=== PATIENT | female | born 1935 | race Caucasian/White ===

== ENCOUNTER 2016-05-27 11:42 | Inpatient (IN) | payer MEDICARE ==
[2016-05-27] MEDS ORDERED: SODIUM CHLORIDE 0.9% 1,000 ML IV STA ×3 (11:50→14:02)
--- NOTE | 2016-05-27 11:51 | ED ---
General Adult HPI - General Stated complaint: Liver Ca patient, abdominal distention, PACEMAKER Time Seen by Provider: 05/27/16 11:45 Source: RN notes reviewed, old records reviewed - History of Present Illness Initial comments: This is an 80-year-old female ER for evaluation. Patient comes in with very complicated medical history. Patient coming in with weakness shortness of breath dehydration. Pains that she can't breathe secondary to abdominal pain and increased abdominal distention. Patient has history of liver cancer found when she was having gallbladder surgery, patient is from [place] and is moving to [facility] for end-of-life type treatment. Patient himself denies any other serious pains at this time. Denies any fevers no diarrhea she is having nausea status and not feeling well. Decreased appetite and weight loss. - Related Data Home Medications Medication Instructions Recorded Confirmed Apixaban [Eliquis] 2.5 mg PO BID 05/27/16 05/27/16 Aspirin EC [Ecotrin Low Dose] 81 mg PO DAILY 05/27/16 05/27/16 Carvedilol [Coreg] 3.125 mg PO BID 05/27/16 05/27/16 Cetirizine HCl [Zyrtec] 10 mg PO DAILY 05/27/16 05/27/16 Cholecalciferol [Vitamin D3] 5,000 unit PO DAILY 05/27/16 05/27/16 L.acidoph,Paracasei, B.lactis 1 cap PO DAILY 05/27/16 05/27/16 [Probiotic] Maple Syrup And Pure Baking Soda 5 ml PO DAILY 05/27/16 05/27/16 Nitroglycerin Sl Tabs [Nitrostat] 0.4 mg SUBLINGUAL Q5M PRN 05/27/16 05/27/16 [place] Extract 1 tab PO DAILY 05/27/16 05/27/16 Allergies Allergy/AdvReac Type Severity Reaction Status Date / Time Penicillins Allergy Rash/Hives Verified 05/27/16 14:09 Sulfa (Sulfonamide Allergy Hallucinati Verified 05/27/16 14:09 Antibiotics) ons Review of Systems ROS Statement: Those systems with pertinent positive or pertinent negative responses have been documented in the HPI. ROS Other: All systems not noted in ROS Statement are negative. General Exam General appearance: alert, anxious, cachectic Head exam: Present: atraumatic, normocephalic, normal inspection Eye exam: Present: normal appearance, PERRL, EOMI. Absent: scleral icterus, conjunctival injection, periorbital swelling ENT exam: Present: mucous membranes dry Neck exam: Present: normal inspection. Absent: tenderness, meningismus, lymphadenopathy Respiratory exam: Present: normal lung sounds bilaterally. Absent: respiratory distress, wheezes, rales, rhonchi, stridor Cardiovascular Exam: Present: regular rate, normal rhythm, normal heart sounds. Absent: systolic murmur, diastolic murmur, rubs, gallop, clicks GI/Abdominal exam: Present: soft, distended, normal bowel sounds. Absent: tenderness, guarding, rebound, rigid Extremities exam: Present: normal inspection, full ROM, normal capillary refill. Absent: tenderness, pedal edema, joint swelling, calf tenderness Back exam: Present: normal inspection Neurological exam: Present: alert, oriented X3, CN II-XII intact Psychiatric exam: Present: normal affect, normal mood Skin exam: Present: warm, dry, intact, normal color. Absent: rash Course Vital Signs 05/27/16 05/27/16 11:48 14:40 Temperature 97.3 F L 97.6 F Pulse Rate 63 62 Respiratory 20 18 Rate Blood Pressure 123/58 158/68 O2 Sat by Pulse 97 100 Oximetry - Reevaluation(s) Reevaluation #1: 05/27/16 14:53 Spoke with patient and patient's family regarding desire for treatment, patient' s family would like hospice consult that they also would like drainage of ascites or GI evaluation, interventional radiology, and oncology in the area. Patient has no doctors in this area at the time Medical Decision Making - Medical Decision Making 80 female here for evaluation of difficulty breathing secondary to abdominal ascites. Patient be admitted for paracentesis, monitoring of oxygen. Patient will be resuscitated, adequately hydrated with symptom control - Lab Data Result diagrams: 05/27/16 13:20 05/27/16 13:20 Lab Results 05/27/16 05/27/16 05/27/16 Range/Units 13:20 13:20 13:20 WBC 10.1 (3.8-10.6) k/uL RBC 3.60 L (3.80-5.40) m/uL Hgb 10.5 L (11.4-16.0) gm/dL Hct 33.8 L (34.0-46.0) % MCV 93.8 (80.0-100.0) fL MCH 29.0 (25.0-35.0) pg MCHC 31.0 (31.0-37.0) g/dL RDW 15.8 H (11.5-15.5) % Plt Count 418 (150-450) k/uL Neutrophils % 83 % Lymphocytes % 10 % Monocytes % 5 % Eosinophils % 1 % Basophils % 0 % Neutrophils # 8.4 H (1.3-7.7) k/uL Lymphocytes # 1.0 (1.0-4.8) k/uL Monocytes # 0.5 (0-1.0) k/uL Eosinophils # 0.1 (0-0.7) k/uL Basophils # 0.0 (0-0.2) k/uL Hypochromasia Moderate PT 12.8 H (9.0-12.0) sec INR 1.3 (<1.1) APTT 34.8 H (22.0-30.0) sec Sodium 128 L (137-145) mmol/L Potassium 4.8 (3.5-5.1) mmol/L Chloride 93 L (98-107) mmol/L Carbon Dioxide 24 (22-30) mmol/L Anion Gap 11 mmol/L BUN 16 (7-17) mg/dL Creatinine 0.56 (0.52-1.04) mg/dL Est GFR (MDRD) Af Amer >60 (>60 ml/min/1.73 sqM) Est GFR (MDRD) Non-Af >60 (>60 ml/min/1.73 sqM) Glucose 80 (74-99) mg/dL Plasma Lactic Acid Chris (0.7-2.0) mmol/L Calcium 8.9 (8.4-10.2) mg/dL Total Bilirubin 1.0 (0.2-1.3) mg/dL AST 215 H (14-36) U/L ALT 29 (9-52) U/L Alkaline Phosphatase 356 H (38-126) U/L Ammonia (<30) umol/L Total Creatine Kinase (30-135) U/L CK-MB (CK-2) (0.0-2.4) ng/mL CK-MB (CK-2) Rel Index Troponin I (0.000-0.034) ng/mL Total Protein 6.6 (6.3-8.2) g/dL Albumin 3.3 L (3.5-5.0) g/dL Amylase 35 (30-110) U/L Lipase 67 (23-300) U/L 05/27/16 05/27/16 Range/Units 13:20 13:20 WBC (3.8-10.6) k/uL RBC (3.80-5.40) m/uL Hgb (11.4-16.0) gm/dL Hct (34.0-46.0) % MCV (80.0-100.0) fL MCH (25.0-35.0) pg MCHC (31.0-37.0) g/dL RDW (11.5-15.5) % Plt Count (150-450) k/uL Neutrophils % % Lymphocytes % % Monocytes % % Eosinophils % % Basophils % % Neutrophils # (1.3-7.7) k/uL Lymphocytes # (1.0-4.8) k/uL Monocytes # (0-1.0) k/uL Eosinophils # (0-0.7) k/uL Basophils # (0-0.2) k/uL Hypochromasia PT (9.0-12.0) sec INR (<1.1) APTT (22.0-30.0) sec Sodium (137-145) mmol/L Potassium (3.5-5.1) mmol/L Chloride (98-107) mmol/L Carbon Dioxide (22-30) mmol/L Anion Gap mmol/L BUN (7-17) mg/dL Creatinine (0.52-1.04) mg/dL Est GFR (MDRD) Af Amer (>60 ml/min/1.73 sqM) Est GFR (MDRD) Non-Af (>60 ml/min/1.73 sqM) Glucose (74-99) mg/dL Plasma Lactic Acid Chris 1.4 (0.7-2.0) mmol/L Calcium (8.4-10.2) mg/dL Total Bilirubin (0.2-1.3) mg/dL AST (14-36) U/L ALT (9-52) U/L Alkaline Phosphatase (38-126) U/L Ammonia <9 (<30) umol/L Total Creatine Kinase 33 (30-135) U/L CK-MB (CK-2) 1.0 (0.0-2.4) ng/mL CK-MB (CK-2) Rel Index 3.0 Troponin I 0.015 (0.000-0.034) ng/mL Total Protein (6.3-8.2) g/dL Albumin (3.5-5.0) g/dL Amylase (30-110) U/L Lipase (23-300) U/L - Radiology Data Radiology results: report reviewed (X-ray abdominal series the chest that showed diffuse metastatic disease no acute process), image reviewed Disposition Clinical Impression: Ascites, Liver cancer, Dyspnea, Abdominal pain Disposition: ADMITTED IP TO THIS [facility] Condition: Fair Referrals: Nonstaff,Physician [Primary Care Provider] - 1-2 days
[2016-05-27 13:31] LABS: Basophils % (A) 0 %; CH 28.6; CHCM 30.6; Eosinophils # (A) 0.1 k/uL (0-0.7); Eosinophils % (A) 1 %; HCT 33.8 % (34.0-46.0); HDW 2.57; HGB 10.5 gm/dL (11.4-16.0); Hypochromasia Moderate; Luc # (Auto) 0.17; Luc % (Auto) 2; Lymphocytes % (A) 10 %; MCV 93.8 fL (80.0-100.0); Mean Platelet Volume 6.5; Monocytes # (A) 0.5 k/uL (0-1.0); Monocytes % (A) 5 %; Neutrophils # (A) 8.4 k/uL (1.3-7.7); Neutrophils % (A) 83 %; RDW 15.8 % (11.5-15.5); WBC 10.1 k/uL (3.8-10.6); WBC (Perox) 10.85
[2016-05-27 13:39] LABS: INR 1.3 (<1.1); Partial Thromboplastin Time 34.8 sec (22.0-30.0); Prothrombin Time 12.8 sec (9.0-12.0)
[2016-05-27 13:41] LABS: ALT 29 U/L (9-52); AST 215 U/L (14-36); Alkaline Phosphatase 356 U/L (38-126); Amylase 35 U/L (30-110); Anion Gap 11 mmol/L; Blood Urea Nitrogen 16 mg/dL (7-17); Calcium 8.9 mg/dL (8.4-10.2); Carbon Dioxide 24 mmol/L (22-30); Chloride 93 mmol/L (98-107); Glucose 80 mg/dL (74-99); Non-African American GFR(MDRD) >60 (>60 ml/min/1.73 sqM); Potassium 4.8 mmol/L (3.5-5.1); Sodium 128 mmol/L (137-145); Total Protein 6.6 g/dL (6.3-8.2)
[2016-05-27 13:55] LABS: Ammonia <9 umol/L (<30)
[2016-05-27] MEDS ORDERED: LORazepam 2 MG/ML SYRINGE IV STA (14:02)
[2016-05-27] MEDS ORDERED: MORPHINE SULFATE 2 MG/ML SYRINGE IVP ONE (14:02)
[2016-05-27 14:04] LABS: Troponin I 0.015 ng/mL (0.000-0.034)
--- NOTE | 2016-05-27 14:09 | XR ---
EXAMINATION TYPE: XR abdomen acute w cxr DATE OF EXAM: 05/27/2016 1:53 PM COMPARISON: NONE HISTORY: Pain and bloating TECHNIQUE: One view of the chest and 3 views of the abdomen are submitted. FINDINGS: The bowel gas pattern is nonspecific. The osseous structures are intact. There is scoliosis with mult ilevel degenerative disc disease. Surgical clips in the right upper quadrant are noted. Soft tissue fullness in the pelvis could be rel ated to urine filled bladder correlate clinically. Arthropathy of the hips noted. Vascular calcificat ion seen. There is bilateral small effusions and numerous pulmonary masses compatible with metastases. There is a cardiac device and apical pleural thickening. Diffuse osteopenia and arthropathy of the shoulders. IMPRESSION: 1. Nonspecific abdomen. 2. Small bilateral effusion and basilar infiltrate with multiple pulmonary masses suspicious for meta stases. 3. Soft tissue fullness in the pelvis could be related to mass, peritoneal fluid or related to urine filled bladder. Correlate clinically.
[2016-05-27] MEDS ORDERED: MORPHINE SULFATE 2 MG/ML SYRINGE IVP PRN (14:41)
[2016-05-27] MEDS ORDERED: TEMAZEPAM 15 MG CAP PO PRN (18:22)
[2016-05-27] MEDS ORDERED: ALPRAZolam 0.25 MG TAB PO PRN (18:22)
[2016-05-27] MEDS ORDERED: HYDROcodone/APAP 5-325MG 1 EACH TAB PO PRN (18:22)
[2016-05-27] MEDS: ONDANSETRON 4 MG/2 ML VIAL IVP PRN ×2 (18:30→23:18)
[2016-05-27] MEDS: CARVEDILOL 3.125 MG TAB PO SCH (20:43)
--- NOTE | 2016-05-27 21:47 | HP ---
DATE OF ADMISSION: 05/27/2016 CHIEF COMPLAINT: Abdominal distention. HISTORY OF PRESENT ILLNESS: This 80-year-old woman with a past medical history of COPD, CVA, TIA, hypertension, history of liver disease, history of myocardial infarction, mitral valve prolapse, history of cholecystectomy, CAD, stent, depression, being followed by a primary physician in [place], has recently travelled to [place] to spend time with the family for the next few months. Apparently patient has extensive history of liver cancer, stage IV, starting in [place], and subsequently patient was in [facility] 2 clinical trials. Patient was unable to tolerate some of the medications and the patient has gone through significant chemotherapy. Currently the patient and family are complaining of some significant abdominal distention. The patient was admitted for further evaluation and treatment. There is no history of any fever, rigor, or chills. No history of any headache, loss of consciousness, seizures. PAST MEDICAL HISTORY: 1. COPD. 2. CVA, TIA. 3. Hypertension. 4. History of liver disease. 5. Myocardial infarction. 6. Mitral valve prolapse. 7. DJD. 8. Pneumonia. 9. Liver cancer, stage IV. 10. Cholecystectomy. 11. CAD, stent. MEDICATIONS: 1. [place] leaf extract 1 tablet p.o. daily. 2. Nitrostat 0.4 sublingually q.5 p.r.n. 3. Maple syrup and pure baking soda 5 mL p.o. daily. 4. Probiotic 1 capsule daily. 5. Vitamin D3, 5000 units. 6. Zyrtec 10 mg daily. 7. Coreg 3.125 mg b.i.d. 8. Ecotrin 81 mg. 9. Eliquis 2.5 mg b.i.d. ALLERGIES: PENICILLIN and SULFA. FAMILY HISTORY: History of myocardial infarction and atherosclerotic heart disease. SOCIAL HISTORY: No current smoking or alcohol. Previous history of smoking. REVIEW OF SYSTEMS: ENT: Diminishing hearing. Diminished vision. CARDIOVASCULAR SYSTEM: No angina, palpitations. RESPIRATORY SYSTEM: No cough, hemoptysis. GI: As mentioned earlier. : No dysuria. NERVOUS SYSTEM: No numbness or weakness. ALLERGY/IMMUNOLOGY: No asthma or hayfever. MUSCULOSKELETAL: As mentioned earlier. HEMATOLOGY/ONCOLOGY: As mentioned earlier. ENDOCRINE: No history of diabetes, hypothyroidism. CONSTITUTIONAL: As mentioned earlier. DERMATOLOGY: Negative. RHEUMATOLOGY: Negative. PSYCHIATRY: As mentioned earlier. PHYSICAL EXAMINATION: Patient alert and oriented x3. Pulse is 69, blood pressure 150/76, respiration 18, temperature 98.4, pulse ox 100% on 2 L. HEENT: Conjunctivae normal. Oral mucosa moist. NECK: No jugular venous distention. No carotid bruit. No lymph node enlargement. CARDIOVASCULAR SYSTEM: S1, S2 muffled. No S3. No S4. RESPIRATORY SYSTEM: Breath sounds diminished at the bases. A few scattered rhonchi and crackles. ABDOMEN: Soft. Diffuse tense ascites present. Bowel sounds are diminished. No mass palpable. LEGS: No edema. No swelling. NERVOUS SYSTEM: Higher functions as mentioned earlier. Moves all 4 limbs. No focal motor or sensory deficit. LYMPHATICS: No lymph node palpable in neck, axillae or groin. SKIN: No ulcer, rash, bleeding. LABS: WBC 10.1, hemoglobin 10.5. INR is 1.3. Sodium 128. AST is 215, ALT is 29, alkaline phosphatase 356. ASSESSMENT: 1. Abdominal pain and distention with significant ascites, possibly metastatic malignant ascites. 2. History of liver cancer, status post chemotherapy and trials. 3. Anemia, normocytic; anemia of chronic disease and malignancy. 4. Hyponatremia. 5. Mild coagulopathy secondary to liver metastases and liver cancer. 6. Increased AST secondary to liver cancer. 7. Increased alkaline phosphatase. 8. Hypoalbuminemia with mild to moderate protein-calorie malnutrition. 9. History of chronic obstructive pulmonary disease. 10. History of cerebrovascular accident, transient ischemic attack. 11. Hypertension. 12. History of chronic liver disease. 13. History of mitral valve prolapse. 14. History of myocardial infarction. 15. History of degenerative joint disease. 16. History of pneumonia. 17. History of stage IV liver cancer. 18. History of cholecystectomy. 19. History of coronary artery disease and stent. 20. History of pacemaker. 21. History of depression. 22. Remote history of nicotine dependence. RECOMMENDATIONS AND DISCUSSION: In this 80-year-old woman who presented with multiple complex medical issues, we will monitor the patient closely, continue the current medications, continue with symptomatic treatment. I recommend Dilaudid as well as hematology/oncology consultation. Recommend interventional radiology consultation as well as possible ascitic tap. Stop Eliquis for at least 24 to 48 hours. Cap the IV fluids. The prognosis is extremely guarded, which I discussed at length with the family. Currently we do not have any further information about the malignancy, but at this time the family is requesting some information regarding palliative care and hospice also. Will continued to monitor. Guarded prognosis. Further recommendations to follow. MTDD
[2016-05-27] MEDS: LORazepam 2 MG/ML SYRINGE IV PRN (23:19)
[2016-05-28] MEDS ORDERED: METOCLOPRAMIDE 5 MG/ML 2 ML VIAL IVP SCH (00:45)
[2016-05-28] MEDS: METOCLOPRAMIDE 5 MG/ML 2 ML VIAL IVP PRN (00:50)
[2016-05-28 08:35] LABS: Basophils % (A) 0 %; CH 28.7; CHCM 30.8; Eosinophils # (A) 0.1 k/uL (0-0.7); Eosinophils % (A) 0 %; HCT 35.5 % (34.0-46.0); HDW 2.58; HGB 10.8 gm/dL (11.4-16.0); Hypochromasia Moderate; Luc # (Auto) 0.14; Luc % (Auto) 1; Lymphocytes # (A) 1.1 k/uL (1.0-4.8); Lymphocytes % (A) 7 %; MCH 28.7 pg (25.0-35.0); MCHC 30.6 g/dL (31.0-37.0); MCV 93.8 fL (80.0-100.0); Mean Platelet Volume 6.5; Monocytes # (A) 0.7 k/uL (0-1.0); Monocytes % (A) 5 %; Neutrophils # (A) 12.2 k/uL (1.3-7.7); Neutrophils % (A) 86 %; RBC 3.78 m/uL (3.80-5.40); RDW 15.9 % (11.5-15.5); WBC 14.2 k/uL (3.8-10.6); WBC (Perox) 15.08
[2016-05-28 08:55] LABS: ALT 31 U/L (9-52); AST 190 U/L (14-36); Alkaline Phosphatase 344 U/L (38-126); Anion Gap 13 mmol/L; Blood Urea Nitrogen 18 mg/dL (7-17); Carbon Dioxide 22 mmol/L (22-30); Chloride 96 mmol/L (98-107); Glucose 129 mg/dL (74-99); Non-African American GFR(MDRD) >60 (>60 ml/min/1.73 sqM); Potassium 4.8 mmol/L (3.5-5.1); Sodium 131 mmol/L (137-145); Total Protein 6.1 g/dL (6.3-8.2)
[2016-05-28 10:23] LABS: Appearance,Urine Cloudy (Clear); Bacteria,Urine Rare /hpf; Bilirubin,Urine 1+ (Negative); Calcium Oxalate Crystals,Urine Moderate /hpf; Glucose,Urine (UA) Negative (Negative); Ketones,Urine 1+ (Negative); Leukocyte Esterase,Urine Negative (Negative); Mucus,Urine Moderate /hpf; Nitrite,Urine Negative (Negative); Particle Count 9824; Protein,Urine 1+ (Negative); RBC,Urine 2 /hpf (0-5); Specific Gravity,Urine 1.022 (1.001-1.035); Squamous Epithelial Cell,Urine 5 /hpf (0-4); UA Billing (MACRO vs. MICRO) MICRO; WBC,Urine 2 /hpf (0-5)
[2016-05-28] MEDS: CARVEDILOL 3.125 MG TAB PO SCH ×2 (11:09→17:42)
[2016-05-28] MEDS: LACTOBACILLUS ACIDOPH & BULGAR 1 EACH PACKET PO SCH (11:10)
[2016-05-28] MEDS: PANTOPRAZOLE 40 MG TABLET PO SCH (11:10)
[2016-05-28] MEDS: CHOLECALCIFEROL 1,000 UNIT TAB PO SCH (11:10)
[2016-05-28] MEDS: HYDROmorphone 1 MG/ML 1 ML SYRINGE IVP PRN ×2 (13:56→20:58)
[2016-05-28] MEDS ORDERED: hydrALAZINE HCL 20 MG/ML 1 ML VIAL IVP PRN (18:22)
[2016-05-28] MEDS ORDERED: cloNIDine HCL 0.1 MG TAB PO PRN (18:22)
--- NOTE | 2016-05-28 19:13 | P.PN ---
Progress Note - Text Consult dictated Impression: 1- Advanced metastatic Cholangiocarcinoma diagnose 2012, treated at [facility] in [place], she have been on Herbal treatments since September 2015. The patient normally lives in [place], now moved to [place] to be near family for Terminal care. 2- Clinically suspected ascites 3- Abdominal pain 2nd to above 4- A-Fib, was on Eliquis, has pacemaker. Rec: 1- Analgesics as needed 2- Hold Eliquis 3- U/S-Guided Paracentesis on Monday05/30/16 4- CT Scan of CAP after Paracentesis 5- If the patient desires further treatment, then will obtain records from [facility], , 2 daughters and son. Answered all questions/concerns
[2016-05-28] MEDS: amLODIPine 5 MG TAB PO SCH (22:17)
[2016-05-29] MEDS: LACTOBACILLUS ACIDOPH & BULGAR 1 EACH PACKET PO SCH (08:06)
[2016-05-29] MEDS: CHOLECALCIFEROL 1,000 UNIT TAB PO SCH (08:06)
[2016-05-29] MEDS: amLODIPine 5 MG TAB PO SCH ×3 (08:12→22:17)
[2016-05-29] MEDS: CARVEDILOL 3.125 MG TAB PO SCH ×3 (08:12→18:02)
[2016-05-29] MEDS: PANTOPRAZOLE 40 MG TABLET PO SCH ×2 (08:12→15:59)
--- NOTE | 2016-05-29 10:08 | PN ---
DATE OF SERVICE: 05/28/2016 This is 80-year-old woman was admitted with abdominal pain, with significant history of liver cancer. The patient was anemic. The patient also had significant ascites. The patient complained of shortness of breath, possibly secondary to abdominal distention and ascites. PAST MEDICAL HISTORY: Reviewed. REVIEW OF SYSTEMS: CARDIOVASCULAR: No angina. GI: As mentioned. : As mentioned. Medications are reviewed and include: 1. [place] 5 mg every 6 p.r.n. 2. Xanax. 3. Coreg 3.125 daily. 4. Dilaudid. 5. ( ). 6. Reglan. 7. Zofran. 8. Protonix. 9. Restoril. PHYSICAL EXAMINATION: GENERAL: Alert, oriented x3. VITAL SIGNS: Pulse 88, blood pressure 117/81, respirations 22, temperature 97.4, pulse ox 91% on room air. HEENT: Conjunctivae normal. NECK: Supple. No JVD. CARDIOVASCULAR: S1 and S2. LUNGS: Breath sounds diminished at the bases. Scattered rhonchi and crackles. ABDOMEN: Soft, obese, nontender. EXTREMITIES: Legs no edema. NERVOUS SYSTEM: No focal deficits. LABS: WBC 14, hemoglobin 10.2, sodium 131, total protein 3. ASSESSMENT: 1. Abdominal pain and distention with significant ascites, possibly metastatic malignant ascites. 2. History of liver cancer, status post chemotherapy and clinical trials . 3. Anemia, normocytic anemia of chronic disease and malignancy. 4. Hyponatremia. 5. Coagulopathy secondary to liver metastases and liver cancer. 6. Increased AST secondary to liver cancer. 7. Increase alkaline phosphatase. 8. Hypoalbuminemia with mild to moderate protein calorie malnutrition. 9. Chronic obstructive pulmonary disease. 10. Cerebrovascular accident/transient ischemic attack. 11. Hypertension. 12. Chronic liver disease. 13. History of mitral valve prolapse. 14. History of myocardial infarction. 15. History of degenerative joint disease. 16. History of pneumonia. 17. History of stage IV liver cancer. 18. History of cholecystectomy. 19. History of coronary artery disease with stent. 20. History of pacemaker. 21. History of depression. 22. Remote history of nicotine dependence. RECOMMENDATIONS: In this 80-year-old who presented with multiple complex medical issues, we will monitor the patient closely. Continue the current medications. Continue symptomatic treatment. Otherwise, at this time I would recommend continuing the current medications, continue with symptomatic treatment. We will hold the anticoagulants. Otherwise, Interventional Radiology for possibly ascitic abdominal paracentesis. Otherwise add Norvasc to control the blood pressure. We will also discuss CODE STATUS with the family. Further recommendations to follow. The prognosis is guarded because of multiple complex medical issues. Further recommendations to follow. MTDD
[2016-05-29] MEDS: HYDROmorphone 1 MG/ML 1 ML SYRINGE IVP PRN ×2 (11:31→19:32)
[2016-05-29 11:32] LABS: ALT 30 U/L (9-52); AST 135 U/L (14-36); Alkaline Phosphatase 346 U/L (38-126); Anion Gap 9 mmol/L; Blood Urea Nitrogen 19 mg/dL (7-17); Calcium 9.1 mg/dL (8.4-10.2); Carbon Dioxide 24 mmol/L (22-30); Chloride 95 mmol/L (98-107); Glucose 95 mg/dL (74-99); Non-African American GFR(MDRD) >60 (>60 ml/min/1.73 sqM); Potassium 4.9 mmol/L (3.5-5.1); Sodium 128 mmol/L (137-145); Total Bilirubin 0.9 mg/dL (0.2-1.3); Total Protein 6.1 g/dL (6.3-8.2)
--- NOTE | 2016-05-29 12:20 | CONS ---
DATE OF CONSULTATION: 05/28/2016. REASON FOR CONSULTATION: Metastatic cancer. HISTORY OF PRESENT ILLNESS: Mrs. Manuel is an 80-year-old female with known history of cholangiocarcinoma diagnosed in September 2012, then presented to a hospital in [place] for abdominal pain and suspected cholecystitis; however, apparently was discovered to have malignancy at the time of surgery. Unfortunately, I do not have access to operative reports, CAT scans or pathology reports. The patient was seen by a local oncologist near her place of living in [facility]; however, she transferred her care to [facility] in [place], where she has been traveling back and forth for treatment for 2 years. The patient stated receiving multiple lines of therapy, including chemotherapy initially. With her cancer progressing and having her cardiac disease and having a stroke with decline in performance status, the patient was not found to be a candidate for any further therapy. The patient has resorted to herbal treatment. The patient overall reported being relatively stable; however, more recently she has been deteriorating with progressive weakness, weight loss, loss of functional status and more recently development of abdominal distention and pain. The patient opted to transfer her care to [place] mostly for terminal care and be with her family. She presented to [facility], where she was subsequently hospitalized. The patient was clinically thought of having ascites. Ultrasound-guided paracentesis was requested. The patient has been receiving anticoagulation with Eliquis, however. PAST MEDICAL HISTORY: 1. Metastatic cholangiocarcinoma with diagnostic and therapeutic circumstance indicated above. 2. Cerebrovascular accidents and transient ischemic attacks. 3. Atrial fibrillation and cardiac dysrhythmias. PAST SURGICAL HISTORY: 1. Cholecystectomy. 2. Pacemaker implantation. SOCIAL HISTORY: The patient is a lifetime nonsmoker. Denies any excessive use of alcohol. She resides with her family in [place], but now moved to [place] for her terminal care. PHYSICAL EXAMINATION: GENERAL: The patient appeared alert and oriented, comfortable, pale. Skin is warm and dry. Hair distribution within normal for age and gender. Blood pressure was 179/81, pulse 88 and regular, respiratory rate was 22 and not labored, temperature was 97.2. There were no pathologic cervical, supraclavicular, infraclavicular or axillary lymphadenopathy. Trachea was in midline. Chest was clear with good air exchange bilaterally. Heart sounds were normal S1 and S2. There was no S3, rubs or murmurs auscultated. Abdomen was soft. There was significant abdominal distention with moderate tenderness. No rebound and clinical ascites. Extremities appear unremarkable with mild edema. Neurologic showed no focal motor or sensory deficit. Cranial nerves 2-12 intact unremarkable. IMPRESSION: 1. Abdominal pain secondary to suspected advanced malignancy and ascites. 2. Clinically suspected ascites likely due to malignancy. 3. Advanced cholangiocarcinoma, has been on herbal treatment since September 2015. Previous to that, she was treated at [facility] in [place]. 4. Atrial fibrillation, has been on anticoagulation with Eliquis. RECOMMENDATIONS: 1. Analgesics as needed. 2. Agree with ultrasound-guided paracentesis. 3. Hold anticoagulation to allow for paracentesis. 4. DVT prophylaxis. 5. CT scan of the chest, abdomen and pelvis after palliative paracentesis. 6. Records from [facility] will be obtained if the patient and her family desire consideration for further treatment of cancer, where they do not indicate so at the present time. Will follow the patient along with you in the hospital. Further recommendations to follow at a later time. Thank you for asking us to participate in the care of Mrs. Manuel.
[2016-05-29 12:35] LABS: Basophils # (A) 0.1 k/uL (0-0.2); Basophils % (A) 0 %; CH 28.5; CHCM 30.4; Eosinophils # (A) 0.1 k/uL (0-0.7); Eosinophils % (A) 1 %; HCT 35.2 % (34.0-46.0); HDW 2.55; Hypochromasia Moderate; Luc # (Auto) 0.17; Luc % (Auto) 1; Lymphocytes % (A) 8 %; MCH 29.4 pg (25.0-35.0); MCHC 31.2 g/dL (31.0-37.0); MCV 94.1 fL (80.0-100.0); Mean Platelet Volume 6.8; Monocytes # (A) 0.6 k/uL (0-1.0); Monocytes % (A) 5 %; Neutrophils # (A) 11.1 k/uL (1.3-7.7); Neutrophils % (A) 86 %; RBC 3.74 m/uL (3.80-5.40); WBC (Perox) 13.63
[2016-05-29] MEDS: CALCIUM CARBONATE 500 MG CHEWABLE PO PRN ×2 (16:06→19:31)
[2016-05-29] MEDS: METOCLOPRAMIDE 5 MG/ML 2 ML VIAL IVP PRN (20:07)
[2016-05-29] MEDS: LORazepam 2 MG/ML SYRINGE IV PRN (22:26)
--- NOTE | 2016-05-30 04:15 | P.CONS ---
History of Present Illness - Reason for Consult Consult date: 05/28/16 - Chief Complaint Abdominal pain and increase in abdominal girth. - History of Present Illness The patient is an 80-year old female who is admitted to the hospital for complaints of abdominal pain and increase in abdominal girth. The patient was diagnosed with metastatic cholagiocarcinoma in 2012 and has not been receiving chemotherapry since September of last year. She lived in [place] and has moved to [place] to be close to her family. She has received experimental treatment at [facility] in the past. Patient was found to have ascites, but large volume abdominal paracentesis has not been scheduled yet because she has been on elequis. No fever, chills, nause or vomiting. No chest pains. Review of Systems Constitutional: Denies fever, chills, sweats, weight gain, or loss. HEENT: Negative for migraines, blurred vision or loss, earaches, drainage, tinnitus, oral mucosal lesions, dysphagia, or odynophagia. CARDIAC: Negative for chest pain, arrhythmias, or palpitation. History of CAHD with prior PA on elequis RESPIRATORY: Has shortness of breath, no hemoptysis, cough, or sputum production. History of COPD GI: See HPI for pertinent findings. : Negative for hematuria, urgency, frequency, polyuria, or dysuria. 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 MUSCULOSKELETAL: Degenerative joint disease. NEUROLOGIC: History of CVA/TIA. ENDOCRINE: Negative for thyroid problems. SKIN: Negative for rash or itching. PSYCHIATRIC: Negative history for depression and anxiety. Past Medical History Past Medical History: Cancer, COPD, CVA/TIA, Hypertension, Liver Disease, Myocardial Infarction ([place]), Mitral Valve Prolapse (MVP), Osteoarthritis (OA), Pneumonia Additional Past Medical History / Comment(s): liver ca stage 4 was reciveing clinical trials for cancer at [facility] UNTIL SHE HAD A TIA IN JULY 2015 THEN TRIALS STOPPED AND NOW SHE IS DOING HOMEOPATHIC TREATMENT.EMPHYSEMA,UTI, LEAKAGE OF URINE AMPARO A PAD, "HEARTBURN", SYNCOPE IN PAST BUT PT NOT SURE WHAT THE CAUSE WAS" Last Myocardial Infarction Date:: UNK History of Any Multi-Drug Resistant Organisms: None Reported Past Surgical History: Cholecystectomy, Heart Catheterization With Stent, Hysterectomy, Pacemaker Additional Past Surgical History / Comment(s): CATARACTS, LIVER BX, Past Anesthesia/Blood Transfusion Reactions: No Reported Reaction Date of Last Stent Placement:: UNK Type of Cardiac Device: Permanent Pacemaker Device Placement Date:: UNK Past Psychological History: Depression Additional Psychological History / Comment(s): )PT USED TO LIVE IN [place] THEN MOVED TO [place]-HAS NOW COME BACK TO [place] FOR TREATMENT.CURRENTLY SHE AND HER ARE STAYING WITH DAUGHTER AND SON IN LAW(1 DOG) IN A 2 STORY HOME(PT STAYS ON MAIN LEVEL), HAS 4 STEPS UP INTO HOME. HAS A NEBULIZER AND A CANE. 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 Smoking Status: Former smoker Past Alcohol Use History: Occasional Additional Past Alcohol Use History / Comment(s): STARTED SMOKING AT AGE 13, 1/ 2 , QUIT 2013, Past Drug Use History: None Reported - Past Family History Father Additional Family Medical History / Comment(s): ASHD Mother Family Medical History: Myocardial Infarction ([place]) Medications and Allergies Home Medications Medication Instructions Recorded Confirmed Type Apixaban [Eliquis] 2.5 mg PO BID 05/27/16 05/27/16 History Aspirin EC [Ecotrin Low Dose] 81 mg PO DAILY 05/27/16 05/27/16 History Carvedilol [Coreg] 3.125 mg PO BID 05/27/16 05/27/16 History Cetirizine HCl [Zyrtec] 10 mg PO DAILY 05/27/16 05/27/16 History Cholecalciferol [Vitamin D3] 5,000 unit PO DAILY 05/27/16 05/27/16 History L.acidoph,Paracasei, B.lactis 1 cap PO DAILY 05/27/16 05/27/16 History [Probiotic] Maple Syrup And Pure Baking Soda 5 ml PO DAILY 05/27/16 05/27/16 History Nitroglycerin Sl Tabs [Nitrostat] 0.4 mg SUBLINGUAL Q5M PRN 05/27/16 05/27/16 History [place] Extract 1 tab PO DAILY 05/27/16 05/27/16 History Allergies Allergy/AdvReac Type Severity Reaction Status Date / Time Penicillins Allergy Rash/Hives Verified 05/27/16 14:09 Sulfa (Sulfonamide Allergy Hallucinati Verified 05/27/16 14:09 Antibiotics) ons Physical Exam Vitals: Vital Signs Temp Pulse Resp BP Pulse Ox 05/28/16 07:00 97.2 F L 88 22 179/81 91 L 05/27/16 23:00 97.1 F L 103 H 17 152/80 95 05/27/16 21:35 69 20 150/68 96 05/27/16 17:52 95 Intake and Output 05/28/16 05/28/16 05/28/16 06:59 14:59 22:59 Output Total 400 Balance -400 Output: Emesis 400 Other: # Voids 1 3 Weight 64 kg General appearance: The patient is very pleasant, alert, oriented, in no acute distress. HENT: Head is normocephalic and atraumatic. Pupils are equal and reactive. Conjunctivae pink, sclerae not icteric. Oropharynx is clear without lesions. Neck: Supple without lymphadenopathy. Trachea midline. Heart: S1 S2. Lungs: No crackles or wheezes are heard. No dullness to percussion. Abdomen: Soft, nontender, distended with ascites with positive fluid wave. Bowel sounds normal. No peritoneal signs. No palpable organomegaly or masses. Extremities: Normal skin color and turgor. No cyanosis, rash, ulceration, clubbing, or edema. Radial and pedal pulses are 2/4 bilaterally. Neurological: No focal deficits. Strength and sensation are grossly intact. Results CBC & Chem 7: 05/29/16 10:48 05/29/16 10:48 Labs: Abnormal Lab Results - Last 24 Hours (Table) 05/28/16 05/28/16 Range/Units 08:13 08:13 WBC 14.2 H (3.8-10.6) k/uL RBC 3.78 L (3.80-5.40) m/uL Hgb 10.8 L (11.4-16.0) gm/dL MCHC 30.6 L (31.0-37.0) g/dL RDW 15.9 H (11.5-15.5) % Plt Count 493 H (150-450) k/uL Neutrophils # 12.2 H (1.3-7.7) k/uL Sodium 131 L (137-145) mmol/L Chloride 96 L (98-107) mmol/L BUN 18 H (7-17) mg/dL Glucose 129 H (74-99) mg/dL AST 190 H (14-36) U/L Alkaline Phosphatase 344 H (38-126) U/L Total Protein 6.1 L (6.3-8.2) g/dL Albumin 3.0 L (3.5-5.0) g/dL Assessment and Plan Plan: 80-year old female with metastatic cholagiocarcinoma with progressive ascites resulting in abdominal pain and SOB. Patient apparently has not responded to chemotheraapy and has been on no treatment since September of last year. Agree with plans for large volume paracentesis after holding eliquis for 48 hours. This will be both diagnostic and therapeutic. Other plans as per you and oncology. Will continue to follow with you.
[2016-05-30 07:56] LABS: Basophils # (A) 0.2 k/uL (0-0.2); Basophils % (A) 2 %; CH 28.7; CHCM 30.2; Eosinophils # (A) 0.1 k/uL (0-0.7); Eosinophils % (A) 0 %; HCT 37.6 % (34.0-46.0); HDW 2.54; HGB 11.3 gm/dL (11.4-16.0); Hypochromasia Marked; Luc # (Auto) 0.28; Luc % (Auto) 2; Lymphocytes # (A) 1.3 k/uL (1.0-4.8); Lymphocytes % (A) 10 %; MCH 28.7 pg (25.0-35.0); MCHC 30.1 g/dL (31.0-37.0); MCV 95.4 fL (80.0-100.0); Mean Platelet Volume 7.5; Monocytes # (A) 0.7 k/uL (0-1.0); Monocytes % (A) 5 %; Neutrophils # (A) 10.3 k/uL (1.3-7.7); Neutrophils % (A) 80 %; RBC 3.94 m/uL (3.80-5.40); RDW 15.9 % (11.5-15.5); WBC 12.8 k/uL (3.8-10.6); WBC (Perox) 13.34
[2016-05-30 08:08] LABS: ALT 29 U/L (9-52); AST 123 U/L (14-36); Alkaline Phosphatase 303 U/L (38-126); Anion Gap 13 mmol/L; Blood Urea Nitrogen 25 mg/dL (7-17); Calcium 9.7 mg/dL (8.4-10.2); Carbon Dioxide 21 mmol/L (22-30); Chloride 97 mmol/L (98-107); Glucose 73 mg/dL (74-99); Non-African American GFR(MDRD) >60 (>60 ml/min/1.73 sqM); Potassium 5.5 mmol/L (3.5-5.1); Sodium 131 mmol/L (137-145); Total Protein 6.1 g/dL (6.3-8.2)
[2016-05-30] MEDS: CARVEDILOL 3.125 MG TAB PO SCH (08:44)
[2016-05-30] MEDS: CHOLECALCIFEROL 1,000 UNIT TAB PO SCH ×2 (08:44→08:48)
[2016-05-30] MEDS: PANTOPRAZOLE 40 MG TABLET PO SCH (08:46)
[2016-05-30] MEDS: LACTOBACILLUS ACIDOPH & BULGAR 1 EACH PACKET PO SCH (08:47)
[2016-05-30] MEDS: amLODIPine 5 MG TAB PO SCH (08:47)
[2016-05-30 09:20] LABS: INR 1.2 (<1.1)
--- NOTE | 2016-05-30 10:28 | PN ---
DATE OF SERVICE: 05/29/2016 This 80-year-old woman was admitted with abdominal pain, also has significant ascites and metastatic malignant ascites. Patient is scheduled to have an ascitic tap tomorrow. The patient will be closely monitored. No chest pain or palpitation. No fever. On exam, alert and oriented x3, pulse 120, blood pressure 125/75, respirations 18, temperature is 96.4, pulse 98% on 2 L. HEENT: Conjunctivae normal. NECK: No jugular venous distension. CARDIOVASCULAR SYSTEM: S1, S2, muffled. RESPIRATORY: Breath sounds diminished at the bases, a few scattered rhonchi, no crackles. Abdomen is soft, tense ascites present. No mass palpable. EXTREMITIES: Legs no edema, no swelling. NERVOUS SYSTEM: No focal deficits. LABS: WBC is 13, hemoglobin is 11. Otherwise, sodium is 128 and INR is 1.3. Labs are noted, albumin is 2.9. ASSESSMENT: 1. Abdominal pain and distention with significant ascites, possibly metastatic malignant ascites. 2. History of cholangiocarcinoma, status post chemotherapy under clinical trial. 3. Anemia, normocytic anemia of chronic disease and malignancy. 4. Hyponatremia, possibly hypovolemic. 5. Coagulopathy secondary to liver metastases and liver cancer. 6. Increased AST secondary to liver cancer. 7. Increased alkaline phosphatase. 8. Hypoalbuminemia with mild to moderate protein calorie malnutrition. 9. Chronic obstructive pulmonary disease. 10. Cerebrovascular accident, transient ischemic attack. 11. Hypertension. 12. History of chronic liver disease. 13. History of mitral valve prolapse. 14. History of myocardial infarction. 15. History of degenerative joint disease. 16. History of pneumonia. 17. History of stage IV liver cholangiocarcinoma. 18. History of cholecystectomy. 19. History of coronary artery disease and stent. 20. History of pacemaker. 21. History of depression. 22. Remote history of nicotine dependence. RECOMMENDATION: Recommend to continue with current medications. Continue with the monitoring and symptomatic treatment. Otherwise, at this time Interventional Radiology consultation and therapeutic aspiration. Guarded prognosis because of multiple complex medical issues. Further recommendations to follow.
--- NOTE | 2016-05-30 11:04 | US ---
EXAMINATION TYPE: US abdomen limited DATE OF EXAM: 05/30/2016 9:50 AM COMPARISON: NONE CLINICAL HISTORY: ASSESS FLUID. Findings: There is a moderate amount of ascites. IMPRESSION: Moderate amount of ascites
[2016-05-30] MEDS: HYDROmorphone 1 MG/ML 1 ML SYRINGE IVP PRN (12:49)
--- NOTE | 2016-05-30 14:48 | DS ---
DATE OF ADMISSION: 05/27/2016 DATE OF DISCHARGE: FINAL DIAGNOSES: 1. Abdominal pain and distention with significant ascites. Positive metastases, status post abdominal paracentesis. 2. History of cholangiocarcinoma, status post chemotherapy under clinical trials. 3. Anemia, normocytic anemia of chronic disease of malignancy. 4. Hyponatremia, possibly hypovolemic. 5. Coagulopathy secondary to liver metastases and liver cancer. 6. Increased AST secondary to hepatic malignancy. 7. Increase alkaline phosphatase. 8. Hypoalbuminemia with mild to moderate protein calorie malnutrition. 9. Chronic obstructive pulmonary disease. 10. History of cerebrovascular accident, transient ischemic attack. 11. Hypertension history. 12. History of chronic liver disease. 13. History of mitral valve prolapse. 14. History of myocardial infarction. 15. History of degenerative joint disease. 16. History of pneumonia. 17. Stage IV liver cancer and cholangiocarcinoma. 18. History of cholecystectomy. 19. History of coronary artery disease, stent. 20. History of pacemaker. 21. History of depression. 22. Remote history of nicotine dependence. 23. No code, NO CARDIOPULMONARY RESUSCITATION, NO VENTILATOR. 24. Hospice care. DISCHARGE DISPOSITION: The patient will be discharged in a stable condition with guarded prognosis. Total time taken 35 minutes. HISTORY OF PRESENT ILLNESS: This 80-year-old woman with a past medical history of multiple medical problems being treated elsewhere was admitted with significant ascites and abdominal distention. The patient had abdominal paracentesis by Interventional Radiology. The patient improved significantly. The case was discussed with the family, family would like to go with comfort measures and hospice at this time. The patient will be discharged in a stable condition with a guarded prognosis with the following recommendations and hospice care also. DISCHARGE ADVICE: 1. Diet is as tolerated. Diet is soft, bland. 2. Activity as tolerated. 3. Follow up with Dr. Yates p.r.nJuma in 2 to 3 days. Medications are: 1. Lactobacillus 1 p.o. daily. 2. Ativan 0.5 mg t.i.d. p.r.n. 3. Roxanol 10 mg sublingual q.4 p.r.n. Once again, the patient will be discharged in a stable condition with guarded prognosis. Follow with Dr. Self p.r.nJuma Once again, the patient will be discharged in a stable condition with a guarded prognosis.
[2016-05-30 15:25] VITALS: BP 126/58; PULSE 86; RESP 18; TEMP 97.8
--- NOTE | 2016-05-30 16:19 | US ---
EXAMINATION TYPE: US paracentesis abd w/image DATE OF EXAM: 05/30/2016 1:52 PM COMPARISON: NONE HISTORY: Ascites. PROCEDURE: Maximal barrier technique was utilized. The skin overlying a suitable pocket of fluid was localized with ultrasound and the overlying skin was prepped and draped. Ultrasound was utilized with sterile technique. Lidocaine was used for local anesthesia and a skin tom made with a scalpel. Catheter was advanced under direct ultrasound guidance into a suitable pocket of fluid and approximately 7.3 liter s of serous fluid were removed. Catheter was withdrawn and hemostasis achieved. There is no immedia te complication; the patient is discharged in stable condition. IMPRESSION: STATUS POST ULTRASOUND GUIDED PARACENTESIS FOR PALLIATION OF ASCITES. THIS PROCEDURE WA S PERFORMED BY THE UNDERSIGNED. Specimen sent for laboratory analysis.
== END 2016-05-30 17:49 | disposition hospice, home (50) | DRG 436 ==
LOC: EC 11:42 → 4MS4W 14:41 → 5ONC 05-29 16:49
PROVIDERS: ADMIT Hospitalist; ATTEND Hospitalist
PROC: 0W9G3ZZ Drainage of Peritoneal Cavity, Percutaneous Approach (ICD-10-PCS; principal; 2016-05-30)
DX: C22.1 Intrahepatic bile duct carcinoma (principal); R18.0 Malignant ascites; E44.0 Moderate protein-calorie malnutrition; D68.4 Acquired coagulation factor deficiency; I48.91 Unspecified atrial fibrillation; J44.9 Chronic obstructive pulmonary disease, unspecified; D63.8 Anemia in other chronic diseases classified elsewhere; E87.1 Hypo-osmolality and hyponatremia; I10 Essential (primary) hypertension; I34.1 Nonrheumatic mitral (valve) prolapse; I25.10 Atherosclerotic heart disease of native coronary artery without angina pectoris; I25.2 Old myocardial infarction; Z51.5 Encounter for palliative care; Z79.01 Long term (current) use of anticoagulants; Z82.49 Family history of ischemic heart disease and other diseases of the circulatory system; Z86.73 Personal history of transient ischemic attack (TIA), and cerebral infarction without residual deficits; Z87.01 Personal history of pneumonia (recurrent); Z87.891 Personal history of nicotine dependence; Z92.21 Personal history of antineoplastic chemotherapy; Z95.0 Presence of cardiac pacemaker; Z95.5 Presence of coronary angioplasty implant and graft; Z79.899 Other long term (current) drug therapy
CPT/HCPCS: 36415; 49083; 74022; 76705; 80053; 81001; 82140; 82150; 82550; 82553; 83605; 83690; 84484; 85025; 85610; 85730; 88108; 88305; 88341; 88342; 96361; 96374; 96375; 99285

== ENCOUNTER 2016-06-19 11:40 | Observation (INO) | payer MEDICARE ==
--- NOTE | 2016-06-19 12:57 | ED ---
General Adult HPI - General Chief complaint: Recheck/Abnormal Lab/Rx Stated complaint: leg swelling, Fluid build up Time Seen by Provider: 06/19/16 11:47 Source: patient Mode of arrival: wheelchair Limitations: no limitations - History of Present Illness Initial comments: This is an 80-year-old female with a history of liver cancer and ascites who presents emergency department for abdominal distention and lower extremity swelling. It is gradually been worsening over the last 3 weeks. The last time that she got a paracentesis. She is also had a paracentesis performed partially 4 days ago however felt very fatigued and was not able to make her appointment. She has a paracentesis scheduled for tomorrow however because of the amount of abdominal distention she's having and discomfort was advised to come emergency department. The patient states that she feels very short of breath especially when she lays flat. She also has been having worsening lower chrie edema. She denies any fevers or chills. No abdominal pain however does admit to discomfort in the abdomen and tightness. She denies any other complaints. - Related Data Home Medications Medication Instructions Recorded Confirmed HYDROcodone/APAP 5-325MG [Steens 1 tab PO Q4HR PRN 06/15/16 06/19/16 5-325] Spironolactone [Aldactone] 25 mg PO DAILY 06/15/16 06/19/16 fentaNYL 25MCG/HR PATCH [Duragesic 1 patch TRANSDERM Q72H 06/15/16 06/19/16 25MCG/HR] Previous Rx's Medication Instructions Recorded LORazepam [Ativan] 0.5 mg SL TID PRN #20 tab 05/30/16 Allergies Allergy/AdvReac Type Severity Reaction Status Date / Time Penicillins Allergy Rash/Hives Verified 06/19/16 12:37 Sulfa (Sulfonamide Allergy Hallucinati Verified 06/19/16 12:37 Antibiotics) ons Review of Systems ROS Statement: Those systems with pertinent positive or pertinent negative responses have been documented in the HPI. ROS Other: All systems not noted in ROS Statement are negative. Past Medical History Past Medical History: Cancer, COPD, CVA/TIA, Hypertension, Liver Disease, Myocardial Infarction ([place]), Mitral Valve Prolapse (MVP), Osteoarthritis (OA), Pneumonia Additional Past Medical History / Comment(s): liver ca stage 4 was reciveing clinical trials for cancer at [facility] UNTIL SHE HAD A TIA IN JULY 2015 THEN TRIALS STOPPED AND NOW SHE IS DOING HOMEOPATHIC TREATMENT.EMPHYSEMA,UTI, LEAKAGE OF URINE AMPARO A PAD, "HEARTBURN", SYNCOPE IN PAST BUT PT NOT SURE WHAT THE CAUSE WAS" Last Myocardial Infarction Date:: UNK History of Any Multi-Drug Resistant Organisms: None Reported Past Surgical History: Cholecystectomy, Heart Catheterization With Stent, Hysterectomy, Pacemaker Additional Past Surgical History / Comment(s): CATARACTS, LIVER BX, paracentesis Past Anesthesia/Blood Transfusion Reactions: No Reported Reaction Date of Last Stent Placement:: UNK Type of Cardiac Device: Permanent Pacemaker Device Placement Date:: UNK Past Psychological History: Anxiety, Depression Additional Psychological History / Comment(s): PT USED TO LIVE IN [place] THEN MOVED TO [place]-HAS NOW COME BACK TO [place] FOR TREATMENT.CURRENTLY SHE AND HER ARE STAYING WITH DAUGHTER AND SON IN LAW(1 DOG) IN A 2 STORY HOME( PT STAYS ON MAIN LEVEL), HAS 4 STEPS UP INTO HOME. HAS A NEBULIZER AND A CANE. 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 Smoking Status: Former smoker Past Alcohol Use History: Occasional Additional Past Alcohol Use History / Comment(s): STARTED SMOKING AT AGE 13, 1/ 2 PPD, QUIT 2013, Past Drug Use History: None Reported - Past Family History Father Additional Family Medical History / Comment(s): ASHD Mother Family Medical History: Myocardial Infarction ([place]) General Exam - General Exam Comments Initial Comments: Constitutional: Awake alert Appears comfortable Head: Normocephalic atraumatic Eyes: no conjunctival injection No scleral icterus EOMI Neck: No JVD Supple Heart: Regular rate rhythm normal S1-S2 no murmurs Lungs: Clear to auscultation bilaterally No wheezing No rales Abdomen: Soft abdomen is distended with fluid wave present nontender Extremities: Bilateral lower extremities are edematous up past the knee DP pulses intact Radial pulses intact Neuro: A&Ox3 No focal neurologic deficits Psych: Appropriate mood and affect Limitations: no limitations Course Vital Signs 06/19/16 06/19/16 11:42 12:49 Temperature 97.2 F L 97.8 F Pulse Rate 108 H 92 Respiratory 20 22 Rate Blood Pressure 112/76 O2 Sat by Pulse 97 97 Oximetry Medical Decision Making - Medical Decision Making This is an 80-year-old female with a history of liver cancer presents emergency room for ascites. Blood work was reviewed and unchanged from previous. She does have a small left pleural effusion. I tried to call GI and interventional radiology however they're unavailable to perform a paracentesis in the ER at this time. I gave the family the option to go home and have the paracentesis performed tomorrow as an outpatient or to stay overnight and they opted to stay overnight because of the difficulty the patient is having with ambulation and breathing. We'll place in overnight to Dr. Mitchell. - Lab Data Result diagrams: 06/19/16 12:35 06/19/16 12:35 Lab Results 06/19/16 06/19/16 06/19/16 Range/Units 12:35 12:35 12:35 WBC 13.9 H (3.8-10.6) k/uL RBC 3.80 (3.80-5.40) m/uL Hgb 10.9 L (11.4-16.0) gm/dL Hct 35.4 (34.0-46.0) % MCV 93.0 (80.0-100.0) fL MCH 28.7 (25.0-35.0) pg MCHC 30.9 L (31.0-37.0) g/dL RDW 16.3 H (11.5-15.5) % Plt Count 370 (150-450) k/uL Neutrophils % 87 % Lymphocytes % 7 % Monocytes % 4 % Eosinophils % 0 % Basophils % 0 % Neutrophils # 12.1 H (1.3-7.7) k/uL Lymphocytes # 1.0 (1.0-4.8) k/uL Monocytes # 0.6 (0-1.0) k/uL Eosinophils # 0.0 (0-0.7) k/uL Basophils # 0.0 (0-0.2) k/uL Hypochromasia Slight Anisocytosis Slight PT 11.9 (9.0-12.0) sec INR 1.2 (<1.1) APTT 28.8 (22.0-30.0) sec Sodium 128 L (137-145) mmol/L Potassium 5.4 H (3.5-5.1) mmol/L Chloride 93 L (98-107) mmol/L Carbon Dioxide 25 (22-30) mmol/L Anion Gap 10 mmol/L BUN 27 H (7-17) mg/dL Creatinine 0.75 (0.52-1.04) mg/dL Est GFR (MDRD) Af Amer >60 (>60 ml/min/1.73 sqM) Est GFR (MDRD) Non-Af >60 (>60 ml/min/1.73 sqM) Glucose 93 (74-99) mg/dL Calcium 9.1 (8.4-10.2) mg/dL Total Bilirubin 0.7 (0.2-1.3) mg/dL AST 109 H (14-36) U/L ALT 21 (9-52) U/L Alkaline Phosphatase 297 H (38-126) U/L Total Protein 6.0 L (6.3-8.2) g/dL Albumin 2.7 L (3.5-5.0) g/dL Disposition Clinical Impression: Ascites, Pleural effusion Disposition[facility] Condition: Stable
--- NOTE | 2016-06-19 13:11 | XR ---
EXAMINATION TYPE: XR chest 1V portable DATE OF EXAM: 06/19/2016 12:31 PM COMPARISON: 05/27/2016 INDICATION: Short of breath TECHNIQUE: Single frontal view of the chest is obtained. FINDINGS: The heart size is normal. The pulmonary vasculature is normal. There are extensive pulmonary nodules present bilaterally. A small left pleural effusion is present, increased from prior study. Pacemaker overlies left chest. Couple of sclerotic areas may be at the le ft shoulder. Degenerative changes are at the distal cervical spine. Pacemaker overlies left chest. IMPRESSION: 1. Multiple bilateral pulmonary nodules. 2. Small left pleural effusion, increasing from comparison.
[2016-06-19 13:13] LABS: Anisocytosis Slight; Basophils % (A) 0 %; CHCM 31.3; Eosinophils % (A) 0 %; HCT 35.4 % (34.0-46.0); HDW 2.45; HGB 10.9 gm/dL (11.4-16.0); Hypochromasia Slight; Luc # (Auto) 0.12; Luc % (Auto) 1; Lymphocytes % (A) 7 %; MCH 28.7 pg (25.0-35.0); MCHC 30.9 g/dL (31.0-37.0); Mean Platelet Volume 6.9; Monocytes # (A) 0.6 k/uL (0-1.0); Monocytes % (A) 4 %; Neutrophils # (A) 12.1 k/uL (1.3-7.7); Neutrophils % (A) 87 %; RDW 16.3 % (11.5-15.5); WBC 13.9 k/uL (3.8-10.6); WBC (Perox) 13.28
[2016-06-19 13:21] LABS: ALT 21 U/L (9-52); AST 109 U/L (14-36); Alkaline Phosphatase 297 U/L (38-126); Anion Gap 10 mmol/L; Blood Urea Nitrogen 27 mg/dL (7-17); Calcium 9.1 mg/dL (8.4-10.2); Carbon Dioxide 25 mmol/L (22-30); Chloride 93 mmol/L (98-107); Glucose 93 mg/dL (74-99); INR 1.2 (<1.1); Non-African American GFR(MDRD) >60 (>60 ml/min/1.73 sqM); Partial Thromboplastin Time 28.8 sec (22.0-30.0); Potassium 5.4 mmol/L (3.5-5.1); Prothrombin Time 11.9 sec (9.0-12.0); Sodium 128 mmol/L (137-145); Total Bilirubin 0.7 mg/dL (0.2-1.3)
[2016-06-19] MEDS ORDERED: HYDROcodone/APAP 5-325MG 1 EACH TAB PO STA (14:00)
[2016-06-19] MEDS ORDERED: NALOXONE 0.4 MG/ML 1 ML VIAL IV PRN (15:08)
[2016-06-19 16:20] VITALS: BMI 23.3
[2016-06-19] MEDS ORDERED: LORazepam 0.5 MG TAB PO PRN (18:40)
[2016-06-20] MEDS: HYDROcodone/APAP 5-325MG 1 EACH TAB PO PRN ×2 (01:01→10:48)
[2016-06-20 05:53] LABS: Basophils % (A) 0 %; CH 28.3; CHCM 30.4; Eosinophils # (A) 0.1 k/uL (0-0.7); Eosinophils % (A) 1 %; HCT 33.9 % (34.0-46.0); HDW 2.46; HGB 10.8 gm/dL (11.4-16.0); Hypochromasia Moderate; Luc # (Auto) 0.15; Luc % (Auto) 1; Lymphocytes # (A) 1.3 k/uL (1.0-4.8); Lymphocytes % (A) 12 %; MCH 29.7 pg (25.0-35.0); MCHC 31.8 g/dL (31.0-37.0); MCV 93.4 fL (80.0-100.0); Mean Platelet Volume 6.9; Monocytes # (A) 0.5 k/uL (0-1.0); Monocytes % (A) 5 %; Neutrophils # (A) 9.1 k/uL (1.3-7.7); Neutrophils % (A) 81 %; RBC 3.63 m/uL (3.80-5.40); RDW 15.9 % (11.5-15.5); WBC 11.3 k/uL (3.8-10.6); WBC (Perox) 12.32
[2016-06-20 06:13] LABS: ALT 24 U/L (9-52); AST 109 U/L (14-36); Alkaline Phosphatase 267 U/L (38-126); Anion Gap 8 mmol/L; Blood Urea Nitrogen 30 mg/dL (7-17); Calcium 8.9 mg/dL (8.4-10.2); Carbon Dioxide 23 mmol/L (22-30); Chloride 96 mmol/L (98-107); Glucose 82 mg/dL (74-99); Non-African American GFR(MDRD) >60 (>60 ml/min/1.73 sqM); Potassium 5.5 mmol/L (3.5-5.1); Sodium 127 mmol/L (137-145); Total Bilirubin 0.7 mg/dL (0.2-1.3); Total Protein 5.8 g/dL (6.3-8.2)
[2016-06-20 06:16] LABS: INR 1.2 (<1.1); Prothrombin Time 11.8 sec (9.0-12.0)
[2016-06-20 09:25] VITALS: RESP 16
[2016-06-20] MEDS: SPIRONOLACTONE 25 MG TAB PO SCH ×2 (10:35→10:39)
--- NOTE | 2016-06-20 10:38 | US ---
EXAMINATION TYPE: US paracentesis abd w/image DATE OF EXAM: 06/20/2016 10:15 AM CLINICAL HISTORY: Ascites The procedure was discussed with the patient. The risks, complications, benefits, and alternatives we re discussed and any questions were answered. Informed consent was obtained. The patient was placed s upine on the ultrasound table and prepped and draped in the usual sterile fashion. All elements of maximal barrier technique were utilized. Under ultrasound guidance, access into the right lower quadrant was obtained, via the paracentesis catheter system and direct ultrasound guidanc e. Approximately 6.9 liters of serous fluid was removed. The patient was stable throughout the procedure and remained stable upon discharge from Department of Radiology. IMPRESSION: Successful therapeutic paracentesis under ultrasound guidance.
[2016-06-20 11:33] VITALS: TEMP 96.9
[2016-06-20 11:36] VITALS: BP 120/58; PULSE 78
--- NOTE | 2016-06-20 14:48 | HP ---
DATE OF ADMISSION: DATE OF SERVICE: 06/19/2016 The chief complaints are abdominal distention and leg swelling. HISTORY OF PRESENT ILLNESS: This 80-year-old woman with a past medical history of cholangiocarcinoma, status post chemotherapy and clinical trial was recently admitted with abdominal pain and distention, patient had abdominal paracentesis. The patient feels much better. Patient was apparently NO COD, NO CPR, NO VENT and was on hospice care. Patient was sent home on hospice, but apparently the hospice was canceled because of the family. The patient wants to live and the patient was also evaluated by Dr. Yates and Dr. Self in the outpatient setting. Home PT has also been arranged. The patient has progressive abdominal distention and tomorrow outpatient paracentesis arranged with [facility] but because of increased symptoms, patient came to [facility], admitted for further evaluation and treatment. As mentioned earlier, patient also had bilateral leg edema and as well as numbness, also. There is no history of any fever, rigors or chills. No history headache, loss of consciousness, or seizures. PAST MEDICAL HISTORY: History of cholangiocarcinoma, history of chronic liver disease, history of CVA, TIA, COPD, history of myocardial infarction, history of mitral valve prolapse, history of anxiety, depression, cholecystitis, CAD, stent. Medications prior to admission include: 1. Fentanyl patch 25 mcg q.72h. 2. Aldactone 25 mg. 3. Ativan 0.5 q.i.d. p.r.n. 4. [place] 5 mg q.4 p.r.n. Allergies are PENICILLIN, SULFA. FAMILY HISTORY: History of myocardial infarction in the family. SOCIAL HISTORY: Previous history of smoking, no history of current smoking, alcohol intake. REVIEW OF SYSTEMS: ENT: Diminishing hearing. Diminished vision. CARDIOVASCULAR SYSTEM: No angina or palpitations. RESPIRATORY: As mentioned earlier. GI: As mentioned earlier. : No dysuria. NERVOUS SYSTEM: No numbness or weakness. ALLERGY/IMMUNOLOGY: No asthma or hayfever. MUSCULOSKELETAL: As mentioned earlier. HEMATOLOGY: No history of anemia. ENDOCRINE: No history of diabetes or hypothyroidism. CONSTITUTIONAL: As mentioned earlier. DERMATOLOGY: Negative. PSYCHIATRY: As mentioned earlier. PHYSICAL EXAM: Patient is alert and oriented x3. Pulse is 114, blood pressure 111/82, respirations 22, temperature is 97.4, pulse ox is 94% on room air. HEENT: Conjunctivae normal. Oral mucosa moist. NECK: No jugular venous distension, no carotid bruit, no lymph node enlargement. CARDIOVASCULAR SYSTEM: S1, S2, muffled. No S3, no S4. RESPIRATORY: Breath sounds diminished at the bases, a few scattered rhonchi, no crackles. Abdomen is soft, distended, tense ascites present, nontender, diffusely dull on percussion. Bowel sounds not heard. LEGS: Bilateral leg edema, pitting. Pulses are diminished bilaterally. NERVOUS SYSTEM: Higher functions as mentioned, moves all 4 limbs, no focal motor deficits. LYMPHATICS: No lymph node enlargement in the neck, axillae or groin. SKIN: As mentioned earlier. No ulcers, rash, bleeding. JOINTS: No active deformity. LABS: WBC 13.9, hemoglobin is 10.9, INR 1.2, sodium 128, potassium 5.4, alk phos 297. ASSESSMENT: 1. Diffuse ascites recurrent, secondary to cholangiocarcinoma, metastatic. 2. Hyponatremia. 3. Hyperkalemia. 4. Hypoalbuminemia with moderate history of protein calorie malnutrition. 5. Gait dysfunction. 6. Increased WBC. 7. Anemia, normocytic anemia, malignancy. 8. Mild coagulopathy secondary to liver metastases and liver cancer. 9. Chronic obstructive pulmonary disease. 10. History of cerebrovascular accident, transient ischemic attack. 11. Hypertension, essential history. 12. History of chronic liver disease. 13. History of mitral valve prolapse. 14. History of myocardial infarction. 15. History of degenerative joint disease. 16. History of pneumonia. 17. History of cholecystectomy. 18. History of coronary artery disease, stent. 19. History of pacemaker. 20. History of depression. 21. Remote history of nicotine dependence. 22. FULL CODE, currently. RECOMMENDATION: In this 80-year-old woman who presented with multiple complex medical issues, will monitor the patient closely. Continue with the current medications and symptomatic treatment. Will arrange for abdominal paracentesis. Will closely monitor. Guarded prognosis because of multiple complex medical issues. See the rest of the orders. I discussed with the patient and family at the bedside regarding the CODE STATUS and as above. Further recommendations to follow. MTDD
--- NOTE | 2016-06-21 13:00 | DS ---
DATE OF ADMISSION: 06/19/2016 DATE OF DISCHARGE: 06/20/2016 FINAL DIAGNOSES: 1. Diffuse ascites, recurrent secondary to cholangiocarcinoma, metastatic. 2. Hyponatremia. 3. Hyperkalemia. 4. Hypoalbuminemia with moderate severe protein calorie malnutrition. 5. Gait dysfunction. 6. Increased WBC. 7. Anemia, normocytic anemia of malignancy. 8. Mild coagulopathy secondary to liver metastases and liver cancer. 9. Chronic obstructive pulmonary disease. 10. History of cerebrovascular accident, transient ischemic attack. 11. Hypertension, essential. 12. History of chronic liver disease. 13. History of mitral valve prolapse, history of myocardial infarction. 14. History of degenerative joint disease. 15. History pneumonia. 16. History of cholecystectomy. 17. History of coronary artery bypass grafting, stent. 18. History of pacemaker. 19. History of depression. 20. Remote history of nicotine dependence. 21. NO CODE, NO CARDIOPULMONARY RESUSCITATION, NO VENT. DISCHARGE DISPOSITION: The patient will be discharged in a stable condition with guarded prognosis. HISTORY OF PRESENT ILLNESS: This is an 80-year-old woman with a past medical history of multiple medical problems was admitted with significant ascites as well as cholangiocarcinoma. The patient underwent abdominal paracentesis per [facility]; about 6.9 L of fluids is removed and patient is slightly better at this time. On exam, vitals are stable. CARDIOVASCULAR SYSTEM: S1, S2, muffled. ABDOMEN: Soft, obese. Ascites present. NERVOUS SYSTEM: Diffusely weak. I have discussed the diagnosis and prognosis implications and would recommend No Code, no CPR, and as well as either palliative care or hospice and the family seems like open for palliative care at this time. Discussed with Dr. Yates who will follow the patient up. DISCHARGE ADVICE: 1. Diet is as tolerated. 2. Activity as tolerated. 3. Follow up with Dr. Yates in 2 to 3 days. 4. Follow up with Dr. Self as recommended. Medications will be: 1. Hydrocodone 5 mg q.4 p.r.n. 2. Ativan 0.5 mg t.i.d. p.r.n. 3. Aldactone 25 mg daily. 4. Fentanyl patch 25 mcg q.72h.
== END 2016-06-20 15:06 | disposition home health service (06) ==
LOC: EC 11:40 → 5ONC 15:10
PROVIDERS: ADMIT Internal Medicine; ATTEND Internal Medicine
DX: C78.7 Secondary malignant neoplasm of liver and intrahepatic bile duct (principal); R18.0 Malignant ascites; E87.1 Hypo-osmolality and hyponatremia; E87.5 Hyperkalemia; E43 Unspecified severe protein-calorie malnutrition; D63.0 Anemia in neoplastic disease; D68.4 Acquired coagulation factor deficiency; E66.9 Obesity, unspecified; I10 Essential (primary) hypertension; I25.10 Atherosclerotic heart disease of native coronary artery without angina pectoris; I25.2 Old myocardial infarction; I34.1 Nonrheumatic mitral (valve) prolapse; J44.9 Chronic obstructive pulmonary disease, unspecified; J90 Pleural effusion, not elsewhere classified; Z86.73 Personal history of transient ischemic attack (TIA), and cerebral infarction without residual deficits; Z87.01 Personal history of pneumonia (recurrent); Z87.891 Personal history of nicotine dependence; Z88.0 Allergy status to penicillin; Z90.49 Acquired absence of other specified parts of digestive tract; Z92.21 Personal history of antineoplastic chemotherapy; Z95.0 Presence of cardiac pacemaker; Z95.1 Presence of aortocoronary bypass graft; Z95.5 Presence of coronary angioplasty implant and graft; Z79.891 Long term (current) use of opiate analgesic; Z79.899 Other long term (current) drug therapy; Z88.2 Allergy status to sulfonamides; R26.9 Unspecified abnormalities of gait and mobility; F32.9 Major depressive disorder, single episode, unspecified; M19.90 Unspecified osteoarthritis, unspecified site
CPT/HCPCS: 99284 ×2; 36415; 80053 ×2; 85025 ×2; 85610 ×2; 85730; 71010; 49083; G0378 ×2

== ENCOUNTER 2016-06-28 08:04 | Day surgery (SDC) | payer MEDICARE ==
[2016-06-28 08:37] VITALS: RESP 20; TEMP 97.7
[2016-06-28 08:39] LABS: Mean Platelet Volume 7.1
[2016-06-28 09:00] LABS: INR 1.3 (<1.1); Prothrombin Time 12.7 sec (9.0-12.0)
[2016-06-28 10:56] VITALS: BP 124/67; PULSE 80
--- NOTE | 2016-06-28 13:43 | US ---
EXAMINATION TYPE: US paracentesis abd w/image DATE OF EXAM: 06/28/2016 10:46 AM COMPARISON: NONE HISTORY: Ascites. PROCEDURE: Maximal barrier technique was utilized. The skin overlying a suitable pocket of fluid was localized with ultrasound and the overlying skin was prepped and draped. Ultrasound was utilized with sterile technique. Lidocaine was used for local anesthesia and a skin tom made with a scalpel. Catheter 5 Fr ench was advanced under direct ultrasound guidance into a suitable pocket of fluid and approximately 5.25liters of serous fluid were removed. Catheter was withdrawn and hemostasis achieved. There is n o immediate complication; the patient is discharged in stable condition. IMPRESSION: STATUS POST ULTRASOUND GUIDED PARACENTESIS FOR PALLIATION OF ASCITES. THIS PROCEDURE WA S PERFORMED BY THE UNDERSIGNED.
== END 2016-06-28 11:05 | disposition home or self-care (01) ==
LOC: RADPROMAIN 08:04
PROVIDERS: ATTEND Internal Medicine Hematology & Oncology
DX: R18.8 Other ascites (principal)
CPT/HCPCS: 36415; 49083; 85049; 85610